=== PATIENT | female | born 1930 | race Caucasian/White ===

== ENCOUNTER 2018-04-17 12:36 | Inpatient (IN) | payer OTHER ==
[~2018-04-17] VITALS: Ht 167.6 cm; Wt 39.1 kg
[~2018-04-17 12:36] MED LIST: ADVAIR 250-501 EACH INH; FLUTICASONE PRO16 GM NASB; FOSAMAX70 M1 PO; LOVASTATIN40 M1 PO; MIRTAZAPINE7.5 M1 PO; OMEPRAZOLE40 MG PO; POTASSIUM CHLO10 ME4 PO; PREDNISONE 20MG20 MG PO; PROAIR RESPICL90 MCG INH; TENORMIN50 M1 PO; VITAMIN D31000 UNI2 PO
--- NOTE | 2018-04-17 13:29 | ED DYSPNEA/ASTHMA COMPLAINT ---
History of Present Illness General Chief Complaint: Dyspnea (COPD, CHF, Other) Stated Complaint: SIB DR SALMON LOW O2 SAT PRODUCTIVE COUGH Source: patient, family Exam Limitations: poor historian Vital Signs & Intake/Output Vital Signs & Intake/Output Vital Signs Date Time Temp Pulse Resp B/P B/P Pulse O2 O2 Flow FiO2 Mean Ox Delivery Rate 04/17 1805 98.1 104 20 140/68 93 Room Air 04/17 1536 120 86 Room Air 04/17 1439 98.4 97 18 124/88 95 Room Air 04/17 1258 95 Room Air 04/17 1240 96.0 104 20 126/89 94 Room Air Allergies Coded Allergies: tiotropium (Intermediate, HIVES 04/17/18) Reconcile Medications Albuterol Sulfate (Proair Respiclick) 90 MCG AER.POW.BA 2 PUFF INH Q4-6 PRN PRN SHORTNESS OF BREATH (Reported) Albuterol Sulfate 2.5 MG/3 ML (0.083 %) VIAL.NEB 1 Vial INH/KIRSTIN Q4P PRN SHORTNESS OF BREATH (Reported) Alendronate Sodium (Fosamax) 70 MG TABLET 1 TAB PO QW BONE (Reported) in the morning, at least 30 minutes before the first food, beverage, or medication of the day Atenolol (Tenormin) 50 MG TABLET 1 TAB PO DAILY HEART (Reported) Cholecalciferol (Vitamin D3) 1,000 UNIT TABLET 1 TAB PO DAILY VITAMIN SUPPORT (Reported) Donepezil HCl 10 MG TABLET 1 TAB PO DAILY MEMORY (Reported) Fluticasone Propionate 50 MCG/ACTUATION SPRAY.SUSP 2 SPRAY NASB DAILY ALLERGIES (Reported) Fluticasone/Salmeterol (Advair 250-50 Diskus) 250 MCG-50 MCG/DOSE BLST.W.DEV 1 PUF INH BID BREATHING PROBLEMS (Reported) Hydrochlorothiazide 25 MG TABLET 1 TAB PO DAILY WATER RETENTION (Reported) Lovastatin 40 MG TABLET 1 TAB PO DAILY CHOLESTEROL (Reported) with food Mirtazapine 7.5 MG TABLET 1 TAB PO QPM SLEEP (Reported) Potassium Chloride 10 MEQ TABLET.ER 1 TAB PO BID SUPPLEMENT (Reported) Triage Note: PT TO ED C/O SOB, COUGH, LOW O2 SAT X 5 WEEKS. C/O PRODUCTIVE YELLOW COUGH. RA SATS 94%. NO OBVIOUS RESP DISTRESS NOTED. PT'S PCP IS DR SALMON. PT HAS BEEN SEEN X 5 AT ANOTHER ED FOR SAME THING PER DAUGHTER. Triage Nurses Notes Reviewed? yes HPI: Patient presents for evaluation of low oxygen saturations and high heart rate while at home. Patient's daughter took the readings on a home pulse oximetry and then contacted Dr. Salmon's office and was told to bring her to the emergency department. The daughter states that the patient has been in the emergency department a number of times for difficulty breathing. The most recent evaluation revealed multiple "patches" in the lungs that are "concerning " according to her primary care doctor. The patient has an appointment with a stores laborer pending. This morning the patient's heart rate was in the 120s and her oxygen saturation was 90% according to her daughter. She was recently treated with a course of antibiotics and prednisone and is currently taking inhaled bronchodilators. In addition the daughter states that the patient's left eye has been closed a lot over the past week and that her tongue seems swollen. The patient has been picking at her tongue for "a while". Past History Travel History Traveled to [place] past 21 day No Medical History Any Pertinent Medical History? 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 No Review of Systems Review of Systems Constitutional: Reports: see HPI. EENTM: Reports: no symptoms. Respiratory: Reports: see HPI. Cardiovascular: Reports: no symptoms. GI: Reports: no symptoms. Genitourinary: Reports: no symptoms. Musculoskeletal: Reports: no symptoms. Skin: Reports: no symptoms. Neurological/Psychological: Reports: no symptoms. Hematologic/Endocrine: Reports: no symptoms. Immunologic/Allergic: Reports: no symptoms. All Other Systems: Reviewed and Negative Physical Exam Physical Exam Respiratory: see below Comments: Gen.: Thin, well-developed, no acute respiratory distress. Head: Normocephalic, atraumatic. Eyes: Normal inspection bilaterally Ears: Normal inspection bilaterally Nose: Normal inspection Throat/mouth : Moist mucosa Neck: Supple, full range of motion, no goiter, no JVD Heart: Regular rate and rhythm, no murmurs rubs or gallops Lungs: Clear to auscultation bilaterally with normal air entry (with cough the patient does have a mild wheeze and rhonchi) Chest: Nontender Back: Normal range of motion Abdomen: Soft, nontender, nondistended, normal bowel sounds Extremities: Normal range of motion grossly, equal radial pulses, no cyanosis clubbing or edema Neurologic: Cranial nerves grossly intact, paucity of speech Skin: warm and dry Psychiatric: Calm, cooperative, normal affect Core Measures ACS in differential dx? No CVA/TIA Diagnosis No Sepsis Present: No Sepsis Focused Exam Completed? No Progress Differential Diagnosis: bronchitis, CHF, COPD, pneumonia, lung cancer Plan of Care: Orders Procedure Date/time Status Regular Diet 04/18 B Active EKG 04/17 1914 Active URINALYSIS 04/17 132 Complete CBC WITHOUT DIFFERENTIAL 04/17 1328 Complete BASIC METABOLIC PANEL 04/17 1328 Complete Laboratory Tests 04/17/18 1528: Urine Color YEL, Urine Clarity CLEAR, Urine pH 6.0, Ur Specific [place] 1.025, Urine Protein 30 H, Urine Ketones NEG, Urine Nitrite NEG, Urine Bilirubin NEG, Urine Urobilinogen 0.2, Ur Leukocyte Esterase NEG, Ur Microscopic SEDIMENT EXAMINED, Urine WBC 1-3 H, Ur Epithelial Cells FEW, Urine Bacteria RARE H, Urine Hemoglobin NEG, Urine Glucose NEG 04/17/18 1356: Anion Gap 8, Estimated GFR 47 L, BUN/Creatinine Ratio 26.4 H, Glucose 94, Calcium 9.6, CBC w Diff NO MAN DIFF REQ, RBC 4.82, MCV 86.5, MCH 29.2, MCHC 33.7 , RDW 13.9, MPV 8.0, Gran % 74.4, Lymphocytes % 18.7 L, Monocytes % 5.8, Eosinophils % 0.9, Basophils % 0.2, Absolute Granulocytes 5.0, Absolute Lymphocytes 1.3, Absolute Monocytes 0.4, Absolute Eosinophils 0.1, Absolute Basophils 0 Diagnostic Imaging: Discussed w/RAD: Radiology Read. CXR Impression: PATIENT: IVAN DENG PRESENT AGE: 88 PATIENT ACCOUNT NO: [id number] : 31 LOCATION: [facility] ORDERING PHYSICIAN: Jean Duong MD SERVICE DATE: 04/17/18 EXAM TYPE: RAD - XRY-CHEST XRAY, TWO VIEWS EXAMINATION: XR CHEST CLINICAL INFORMATION: Infiltrate effusion cancer. COMPARISON: CT chest May 2014 chest x-ray October 2013 TECHNIQUE: 2 views of the chest were obtained. FINDINGS: No significant abnormality is noted involving the heart, lungs, mediastinum, bony thorax or soft tissues. The previously noted opacities in nodules on CT May 2014 are not conspicuous IMPRESSION: Unremarkable examination. No change compared with chest x-ray October 2013 The previously noted opacities and nodules on chest CT in 2013 are not conspicuous on today's x-ray which may be in part related to differences in imaging technique DICTATED BY: Shamir Palomo MD DATE/TIME DICTATED:04/17/181420 FLAT FOLDING MACHINE OPERATOR:BARON DATE/TIME TRANSCRIBED:04/17/181420 CONFIDENTIAL, DO NOT COPY WITHOUT APPROPRIATE AUTHORIZATION. <Electronically signed in Other Vendor System> SIGNED BY: Shamir Palomo MD 04/17/181427 Initial ED EKG: irregular sinus rhythm without acute ischemic changes Prior EKG: unchanged Comments: 04/17/2018 7:59:09 PM I have updated the patient and family repeatedly during her emergency department stay. The daughter expressed concern about the patient's overall level of functioning recently including the fact that she has been staying in bed virtually all the time. Departure Departure Disposition: STILL A PATIENT Condition: Stable Clinical Impression Primary Impression: Dyspnea on exertion Secondary Impressions: Generalized weakness, Hypoxia, Renal insufficiency Referrals: Peter Salmon MD (PCP/Family) Departure Forms: Customer Survey General Discharge Information Admission Note Spoke With: Catrachito Garcia MD Documentation of Exam: Documentation of any treatments & extenuating circumstances including Concerns Regarding Discharge (functional status, medication knowledge or non-compliance, living conditions, etc.) that warrant an admission rather than observation: Patient presents for evaluation of elevated heart rate and decreased oxygen saturations while at home. During patient's emergency department stay she had 86% oxygen saturation with ambulation along with an elevation in heart rate. The cause of this drop in oxygen saturation is unclear. Given this I feel the patient is a poor candidate for outpatient management as I feel the exertion of outpatient treatment would exacerbate her hypoxia and potentially lead to chest pain, cardiac ischemia and respiratory failure. I feel she requires hospitalization for pulse oximetry, oxygen supplementation as needed, further investigation of the patient's respiratory status, consideration of pulmonary consultation and pulmonary function studies, physical therapy consultation for patient's overall level of functioning and ability to perform ADLs and consideration of psychiatric evaluation for possible depression or other emotional/psychiatric considerations. I feel this patient will require a multiple day hospitalization. Critical Care Note Critical Care Note Critical Care Time: non-applicable
[2018-04-17 14:09] LABS: ABSOLUTE BASOPHIL COUNT 0 /CUMM (0.0-0.2); ABSOLUTE EOSINOPHIL COUNT 0.1 /CUMM (0.0-0.7); ABSOLUTE LYMPH COUNT 1.3 /CUMM (1.2-3.4); ABSOLUTE MONOCYTE COUNT 0.4 /CUMM (0.10-0.60); BASOPHIL % 0.2 % (0.0-2.0); EOSINOPHIL % 0.9 % (0-5); GRANULOCYTE % 74.4 % (42.2-75.2); HEMATOCRIT 41.7 % (37-47); MEAN CORPUSCULAR HGB 29.2 PG (27.0-31.0); MEAN CORPUSCULAR HGB CONC 33.7 G/DL (33.0-37.0); MEAN CORPUSCULAR VOLUME 86.5 FL (81.0-99.0); PLATELET COUNT 236 /CUMM (130-400); RBC DISTRIBUTION WIDTH 13.9 % (11.5-14.5); RED BLOOD CELL CT 4.82 /CUMM (4.20-5.40); WHITE BLOOD CELL COUNT 6.7 /CUMM (4.8-10.8)
[2018-04-17] MEDS ORDERED: DONEPEZIL HCL10 M1 PO (14:10)
[2018-04-17] MEDS ORDERED: ALBUTEROL2.5 MG/3 M INH/SOL (14:11)
--- NOTE | 2018-04-17 14:28 | RADIOLOGY REPORT ---
EXAMINATION: XR CHEST CLINICAL INFORMATION: Infiltrate effusion cancer. COMPARISON: CT chest May 2014 chest x-ray October 2013 TECHNIQUE: 2 views of the chest were obtained. FINDINGS: No significant abnormality is noted involving the heart, lungs, mediastinum, bony thorax or soft tissues. The previously noted opacities in nodules on CT May 2014 are not conspicuous IMPRESSION: Unremarkable examination. No change compared with chest x-ray October 2013 The previously noted opacities and nodules on chest CT in 2014 are not conspicuous on today's x-ray which may be in part related to differences in imaging technique
--- NOTE | 2018-04-17 21:01 | History & Physical ---
Lester Fermin 04/17/18 2100: General Information and HPI MD Statement: I have seen and personally examined IVAN RICO and documented this H&P. The patient is a 88 year old F who presented with a patient stated chief complaint of [Shortness of Breath x 5 weeks progressively worsening]. Source of Information: patient, family Exam Limitations: confusion History of Present Illness: Patient examined at bedside history was provided by both patient and daughter, who is primary caregiver for patient. Ms. Rico, also known as "Nubia", is an 88-year-old female with past medical history of COPD, hypertension, dementia who presents to the emergency department today with a chief complaint of shortness of breath. Nubia has had dyspnea on exertion, lethargy, cough productive of yellow sputum with scant blood, and decreased p.o. intake over the past 5 weeks. She has been to the emergency department 5 times prior to presentation, each time she was not admitted, but without resolution of symptoms. She has been taking Mucinex, which she feels has not helped her cough. She denies paroxysms of cough, does admit to some wheezing. Denies any pain. Associates the cough more with the morning, however is short of breath throughout the day. Per daughter, Nubia has been taking her nebulizer almost every 4 hours for the past 3 weeks which only mildly improves her symptoms. She has been managed by her primary care doctor Raj (phone #[phone]). She was started on prednisone for 7 days on March 13, however after not improving she was extended for another week by her primary. She was also started on doxycycline for 10 days back in the beginning of March as well per the daughter. She denies any recent inpatient admissions, however she has been in the emergency department at least 5 times over the past month. She denied any fevers, chills, night sweats, dizziness, headaches, lower extremity edema. She also denies any falls, and the daughter states she has not seen Nubia fall at home. Daughter states she is mentating at baseline. 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 Home (with daughter) Who Do You Live With? child, her daughter and her boy friend Services at Home: None Smoking Status: Former Smoker (10 packyears) ETOH Use: denies use Illicit Drug Use: denies illicit drug use Functional Ability ADLs Independent: dressing, eating, toileting. Needs Assist: bathing. Ambulation: independent IADLs Independent: shopping. 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 Exam & Diagnostic Data Last 24 Hrs of Vital Signs/I&O Vital Signs Date Time Temp Pulse Resp B/P B/P Pulse O2 O2 Flow FiO2 Mean Ox Delivery Rate 04/17 2130 97.8 102 20 159/91 94 Room Air 04/17 1805 98.1 104 20 140/68 93 Room Air 04/17 1536 120 86 Room Air 04/17 1439 98.4 97 18 124/88 95 Room Air 04/17 1258 95 Room Air 04/17 1240 96.0 104 20 126/89 94 Room Air Intake & Output 04/17 1600 0706 0800 07 0000 Intake Total 0 Output Total Balance 0 Intake, Oral 0 Patient 84 lb 0.01 oz Weight Weight Estimated Measurement Method Physical Exam General Appearance Alert, Cooperative, No Acute Distress Skin No Breakdown Skin Temp/Moisture Exam: Warm/Dry HEENT Mucous Membr. moist/pink Cardiovascular Normal S1, Normal S2, No Murmurs, irregular Lungs RODRIGUEZ Wheeze, LLL exp wheeze, RUL diminished, RML+RLL Rhonchi Abdomen Soft, No Tenderness Neurological Sensation Intact Extremities No Edema Last 24 Hrs of Labs/[place]: Laboratory Tests 04/17/18 1528: Urine Color YEL, Urine Clarity CLEAR, Urine pH 6.0, Ur Specific [place] 1.025, Urine Protein 30 H, Urine Ketones NEG, Urine Nitrite NEG, Urine Bilirubin NEG, Urine Urobilinogen 0.2, Ur Leukocyte Esterase NEG, Ur Microscopic SEDIMENT EXAMINED, Urine WBC 1-3 H, Ur Epithelial Cells FEW, Urine Bacteria RARE H, Urine Hemoglobin NEG, Urine Glucose NEG 04/17/18 1356: Anion Gap 8, Estimated GFR 47 L, BUN/Creatinine Ratio 26.4 H, Glucose 94, Calcium 9.6, CBC w Diff NO MAN DIFF REQ, RBC 4.82, MCV 86.5, MCH 29.2, MCHC 33.7 , RDW 13.9, MPV 8.0, Gran % 74.4, Lymphocytes % 18.7 L, Monocytes % 5.8, Eosinophils % 0.9, Basophils % 0.2, Absolute Granulocytes 5.0, Absolute Lymphocytes 1.3, Absolute Monocytes 0.4, Absolute Eosinophils 0.1, Absolute Basophils 0 Microbiology 04/17 2157 LOWER RESP: Respiratory Culture - ORD 04/17 2157 LOWER RESP: Gram Stain - ORD Diagnostic Data CXR Results IMPRESSION: Unremarkable examination. No change compared with chest x-ray October 2013 The previously noted opacities and nodules on chest CT in 2013 are not conspicuous on today's x-ray which may be in part related to differences in imaging technique Assessment/Plan Assessment: "Nubia" is an 88-year-old female with a past medical history of COPD, hypertension, dementia who presents with a 5 week history of shortness of breath , dyspnea on exertion, decreased p.o. intake, and cough productive of yellow sputum. Differentials include acute exacerbation of COPD, asthma exacerbation, community -acquired pneumonia, atypical pneumonia, lung malignancy (less likely). Pneumonia seems less likely, as patient was afebrile, recently treated with antibiotics, has no leukocytosis. No systemic signs. 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 #COPD exacerbationmost likely, patient has history, already been treated with antibiotics, has only been on p.o. steroids, has not had recent PFTs. -Admit to general medicine -We will start her on IV Solu-Medrol 40 mg every 12 with a plan to taper. -We will hold antibiotics, she was recently treated with doxycycline, is afebrile, has no leukocytosis. -We will start her on albuterol every 4 as needed -TRC, supplemental oxygen Sputum culture follow-up #Hypertension -We will continue her home meds, including hydrochlorothiazide. Obtain previous hospital records DVT prophylaxis Heparin + ALPS Regular Diet IV Access: Peripheral IV Full Code As Ranked By This Provider Problem List: 1. COPD exacerbation 2. Hypertension Core Measures/Misc (06/29) Acute Coronary Syndrome ACS Diagnosis: No Congestive Heart Failure Congestive Heart Failure Diagnosis No Cerebrovascular Accident CVA/TIA Diagnosis: No VTE (View Protocol) VTE Risk Factors Age>40 No Mechanical VTE Prophylaxis d/t N/A MechProphylax Ordered No VTE Pharm Prophylaxis d/t NA PharmProphylax ordered Sepsis (View protocol) Sepsis Present: No If YES complete Sepsis Event Note If YES complete Sepsis Event Note Adelnia Gandara 04/17/18 2113: Core Measures/Misc (06/29) Sepsis (View protocol) If YES complete Sepsis Event Note If YES complete Sepsis Event Note Resident Review Statement Resident Statement: examined this patient, discussed with sales management intern, agreed with sales management intern, discussed with family, reviewed EMR data (avail), discussed with nursing , discussed with case mgmt, reviewed images, amended to note Other Findings: Mr. Rico is a 88yo F w/ PMH of hypertension, hyperlipidemia, COPD/emphysema, insomnia, history of appendectomy, presented to the ER with chief complaint of hypoxia x past 5wks, and tachycardia,productive cough w/ yellowish sputum, and multiple re-admission to ER for similar complaints. According to the daughter, patient had dyspnea on exertion, lethargy, productive cough with yellow sputum scanty clots, and decreased p.o. intake 5 weeks, with frequent visits of ER 5 times to outside hospital, prior to this ER admission. She was no admitted, and was given symptomatic relief with Mucinex, and prednisone/antibiotics including azithromycin however without any significant improvement of symptoms. Patient has been using the pro-air rescue inhaler every 4 hours for the past 3 weeks. Patient was mainly being managed by the primary care without seeing any steaming cabinet tender or surface water manager, however has scheduled a recent appointment with the surface water manager outside of [facility]. Patient had a remote history of COPD being admitted in [place] back in 2014, however had no other flares in the past years. Patient denies any past cardiac history is and denied remembering any echocardiograph history. Patient appears to be low appetite since the past few days, however still maintain adequate p.o. intake At bedside, patient's daughter was coughing and endorsed that" she was given cough to people around her." During our clinical interaction, patient denied recent travel, fever/ lightheadedness/diaphoresis/night sweat/Chest Pain/Palpitation/Abdominal pain/ bowel movement or urinary abnormality, or other skin/musculoskeletal/ neurological/mood disorders, or dietary change. -Smoking: Former smoker of 1/2 PPD till 1985 -Alcohol: Denied -Rec Drugs: Denied -Allergy: Tiotropium w/ Hives, however not recalled by the Daughter On admission, Vitals: Stable afebrile, tachycardia 97-120s, stable breathing, BP 120s/80s, saturating 93% on room air, with one episode of desattubg to 86% with heart rate 120 Physical exam -Gen.: AO to person/place, however not fully oriented to time or content, cooperative, conversational, no distress, -HEENT: NCAT, PERRL, EOMI, anicteric sclera, moist mucous membranes -Neck: Supple, no JVD, trachea midline, mild accessory respiratory muscle use -Cardio: Irregular however non-tachy S1/S2 without significant murmurs/gallops/ rubs -Pulmonary: Mild rhonchi/wheezing on left side. -Abdomen: Soft, nontender, nondistended, bowel sounds intact -Extremity: Normal pulses/capillary refill, no cyanosis/clubbing/edema -CBC: Unremarkable -BMP: Unremarkable with elevated creatinine 1.1, however at baseline -CXR: Unremarkable examination. No change compared with chest x-ray October 2013 -EKG: Irregular SR w/o significant ST-T abnormalities. -Interventions in ER: Normal saline bolus 5001 Problem list/Assessment/Hospital Course: #Dyspnea/hypoxia on exertion with tachycardia #PMH of hypertension, hyperlipidemia, COPD/emphysema, insomnia, history of appendectomy - Admit to general medicine floor -Will monitor off Azithromycin for now as patient had a recent hx of 10-14 days of tx with macrolids without improvement - Would obtain ECHO, may consult cardio if needed. - Sputum culture pending DVT prophylaxis Heparin SC + ALPS Regular Diet IV Access: Peripheral IV Full Code Catrachito Garcia MD 04/18/18 0536: General Information and HPI MD Statement: I have seen and personally examined SOWMYALYSSA and documented this H&P. The patient is a 88 year old F who presented with a patient stated chief complaint of []. Allergies/Medications Allergies: Coded Allergies: tiotropium (Intermediate, HIVES 04/17/18) Home Med list Albuterol Sulfate (Proair Respiclick) 90 MCG AER.POW.BA 2 PUFF INH Q4-6 PRN PRN SHORTNESS OF BREATH (Reported) Albuterol Sulfate 2.5 MG/3 ML (0.083 %) VIAL.NEB 1 Vial INH/KIRSTIN Q4P PRN SHORTNESS OF BREATH (Reported) Alendronate Sodium (Fosamax) 70 MG TABLET 1 TAB PO QW BONE (Reported) in the morning, at least 30 minutes before the first food, beverage, or medication of the day Atenolol (Tenormin) 50 MG TABLET 1 TAB PO DAILY HEART (Reported) Cholecalciferol (Vitamin D3) 1,000 UNIT TABLET 1 TAB PO DAILY VITAMIN SUPPORT (Reported) Fluticasone Propionate 50 MCG/ACTUATION SPRAY.SUSP 2 SPRAY NASB DAILY ALLERGIES (Reported) Fluticasone/Salmeterol (Advair 250-50 Diskus) 250 MCG-50 MCG/DOSE BLST.W.DEV 1 PUF INH BID BREATHING PROBLEMS (Reported) Lovastatin 40 MG TABLET 1 TAB PO DAILY CHOLESTEROL (Reported) with food Mirtazapine 7.5 MG TABLET 1 TAB PO QPM SLEEP (Reported) Potassium Chloride 10 MEQ TABLET.ER 1 TAB PO BID SUPPLEMENT (Reported) Past Family/Social History Psychosocial History Smoking Status: Former Smoker ETOH Use: denies use Employment History Employment Retired Review of Systems Review of Systems Constitutional: Reports: see HPI. Exam & Diagnostic Data Last 24 Hrs of Vital Signs/I&O Vital Signs Date Time Temp Pulse Resp B/P B/P Pulse O2 O2 Flow FiO2 Mean Ox Delivery Rate 04/17 2301 98.1 100 20 148/88 93 04/17 2130 97.8 102 20 159/91 94 Room Air 04/17 1805 98.1 104 20 140/68 93 Room Air 04/17 1536 120 86 Room Air 04/17 1439 98.4 97 18 124/88 95 Room Air 04/17 1258 95 Room Air 04/17 1240 96.0 104 20 126/89 94 Room Air Intake & Output 04/18 0800 07/ 0000 04/17 1600 Intake Total 0 Output Total Balance 0 Intake, Oral 0 Patient 86 lb 3.99 oz 84 lb 0.01 oz Weight Weight Bed scale Estimated Measurement Method Physical Exam General Appearance Alert, Cooperative, No Acute Distress HEENT Atraumatic, PERRLA, EOMI Cardiovascular Regular Rate, Normal S1, Normal S2 Lungs RODRIGUEZ Wheeze, LLL exp wheeze, RUL diminished, RML+RLL Rhonchi Abdomen Normal Bowel Sounds, Soft, No Tenderness Extremities No Edema Last 24 Hrs of Labs/[place]: Laboratory Tests 04/17/18 1528: Urine Color YEL, Urine Clarity CLEAR, Urine pH 6.0, Ur Specific [place] 1.025, Urine Protein 30 H, Urine Ketones NEG, Urine Nitrite NEG, Urine Bilirubin NEG, Urine Urobilinogen 0.2, Ur Leukocyte Esterase NEG, Ur Microscopic SEDIMENT EXAMINED, Urine WBC 1-3 H, Ur Epithelial Cells FEW, Urine Bacteria RARE H, Urine Hemoglobin NEG, Urine Glucose NEG 04/17/18 1356: Anion Gap 8, Estimated GFR 47 L, BUN/Creatinine Ratio 26.4 H, Glucose 94, Calcium 9.6, CBC w Diff NO MAN DIFF REQ, RBC 4.82, MCV 86.5, MCH 29.2, MCHC 33.7 , RDW 13.9, MPV 8.0, Gran % 74.4, Lymphocytes % 18.7 L, Monocytes % 5.8, Eosinophils % 0.9, Basophils % 0.2, Absolute Granulocytes 5.0, Absolute Lymphocytes 1.3, Absolute Monocytes 0.4, Absolute Eosinophils 0.1, Absolute Basophils 0 Microbiology 04/17 2157 LOWER RESP: Respiratory Culture - COLB 04/17 2157 LOWER RESP: Gram Stain - COLB Core Measures/Misc (06/29) Sepsis (View protocol) If YES complete Sepsis Event Note If YES complete Sepsis Event Note Attending MD Review Statement Attending Statement Attending MD Statement: examined this patient, discuss w/resident/PA/CORD MAKER, agreed w/resident/PA/CORD MAKER, amended to note Attending Assessment/Plan: This patient is an 88-year-old female with past medical history of COPD, hypertension, dementia who presents to the emergency department today with a chief complaint of shortness of breath. The patient has had dyspnea on exertion , lethargy, cough productive of yellow sputum with scant blood, and decreased p.o. intake over the past 5 weeks. She has been to the emergency department 5 times prior to presentation, each time she was not admitted, but without resolution of symptoms. She has been taking Mucinex, which she feels has not helped her cough. She denies paroxysms of cough, does admit to some wheezing. Denies any pain. Associates the cough more with the morning, however is short of breath throughout the day. The patient has been taking her nebulizer almost every 4 hours for the past 3 weeks which only mildly improves her symptoms. She was started on prednisone for 7 days on March 13, however after not improving she was extended for another week by her primary. She was also started on doxycycline for 10 days back in the beginning of March as well per the daughter. Daughter states she is mentating at baseline. Treating for Acute ECOPD.
[2018-04-17 23:01] VITALS: BP 148/88
--- NOTE | 2018-04-18 05:52 | PN- Housestaff ---
See Addendum Subjective Follow-up For: AECOPD Subjective: Pt seen and examined at bedside. Was admitted last night for AECOPD. Daughter not at bedside. Pt is demented at baseline. Pt Alert to place, not person or time. Pt continually repeats "I dont know what it is but something is wrong". Unable to localize pain or specific complaints. Review of Systems Constitutional: Reports: see HPI. Objective Last 24 Hrs of Vital Signs/I&O Vital Signs Date Time Temp Pulse Resp B/P B/P Pulse O2 O2 Flow FiO2 Mean Ox Delivery Rate 04/18 0636 97.6 92 20 140/98 94 Room Air 04/17 2301 98.1 100 20 148/88 93 04/17 2130 97.8 102 20 159/91 94 Room Air 04/17 1805 98.1 104 20 140/68 93 Room Air 04/17 1536 120 86 Room Air 04/17 1439 98.4 97 18 124/88 95 Room Air 04/17 1258 95 Room Air 04/17 1240 96.0 104 20 126/89 94 Room Air Intake & Output 04/18 0800 04/18 0000 04/17 1600 Intake Total 100 0 Output Total 250 Balance -150 0 Intake, Oral 100 0 Output, Urine 250 Patient 85 lb 1 oz 86 lb 4 oz 84 lb 0.01 oz Weight Weight Bed scale Estimated Measurement Method Physical Exam General Appearance: Alert, Cooperative, No Acute Distress Skin: No Breakdown Skin Temp/Moisture Exam: Warm/Dry HEENT: Mucous Membr. moist/pink Cardiovascular: Normal S1, Normal S2 Lungs: rhonchi, RLL, LLL Abdomen: Soft, No Tenderness Neurological: Sensation Intact Extremities: No Edema Current Medications: Current Medications Sig/Nickolas Start time Last Medication Dose Route Stop Time Status Admin Acetaminophen 650 MG Q6P PRN 04/17 2045 AC PO Albuterol Sulfate 3 ML Q4P PRN 04/17 2200 AC INH Atenolol 50 MG DAILY 04/18 09 AC PO Atorvastatin Calcium 10 MG 1700 04/18 1700 AC PO Cholecalciferol 1,000 IU DAILY 04/18 900 AC PO Heparin Sodium 5,000 UNIT Q8 04/18 0600 AC 04/18 (Porcine) SC 0605 Methylprednisolone 40 MG Q12 04/17 2230 AC 04/17 IV 2315 Mirtazapine 7.5 MG QPM 04/18 2100 AC PO Potassium Chloride 10 MEQ BID 04/18 0900 AC PO Sodium Chloride 500 ML BOLUS ONE 04/17 1330 DC 04/17 IV 04/17 1429 1402 Last 24 Hrs of Lab/[place] Results Last 24 Hrs of Labs/[place]: Laboratory Tests 04/17/18 1528: Urine Color YEL, Urine Clarity CLEAR, Urine pH 6.0, Ur Specific [employer] 1.025, Urine Protein 30 H, Urine Ketones NEG, Urine Nitrite NEG, Urine Bilirubin NEG, Urine Urobilinogen 0.2, Ur Leukocyte Esterase NEG, Ur Microscopic SEDIMENT EXAMINED, Urine WBC 1-3 H, Ur Epithelial Cells FEW, Urine Bacteria RARE H, Urine Hemoglobin NEG, Urine Glucose NEG 04/17/18 1356: Anion Gap 8, Estimated GFR 47 L, BUN/Creatinine Ratio 26.4 H, Glucose 94, Calcium 9.6, CBC w Diff NO MAN DIFF REQ, RBC 4.82, MCV 86.5, MCH 29.2, MCHC 33.7 , RDW 13.9, MPV 8.0, Gran % 74.4, Lymphocytes % 18.7 L, Monocytes % 5.8, Eosinophils % 0.9, Basophils % 0.2, Absolute Granulocytes 5.0, Absolute Lymphocytes 1.3, Absolute Monocytes 0.4, Absolute Eosinophils 0.1, Absolute Basophils 0 Microbiology 04/17 2157 LOWER RESP: Respiratory Culture - COLB 04/17 2157 LOWER RESP: Gram Stain - COLB Assessment/Plan Assessment: "Nubia" is an 88-year-old female with a past medical history of COPD, hypertension, dementia who presents with a 5 week history of shortness of breath , dyspnea on exertion, decreased p.o. intake, and cough productive of yellow sputum. Differentials include acute exacerbation of COPD, asthma exacerbation, community -acquired pneumonia, atypical pneumonia, lung malignancy (less likely). Pneumonia seems less likely, as patient was afebrile, recently treated with antibiotics, has no leukocytosis. No systemic signs. 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 #COPD exacerbationmost likely, patient has history, already been treated with antibiotics, has only been on p.o. steroids, has not had recent PFTs. -Admit to general medicine -We will start her on IV Solu-Medrol 40 mg every 12 with a plan to taper. -We will hold antibiotics, she was recently treated with doxycycline, is afebrile, has no leukocytosis. -We will start her on albuterol every 4 as needed -TRC, supplemental oxygen Sputum culture follow-up #Hypertension -We will continue her home meds, including hydrochlorothiazide. Obtain previous hospital records DVT prophylaxis Heparin + ALPS Regular Diet IV Access: Peripheral IV Full Code Problem List: 1. COPD exacerbation Pain Ratin Pain Location: na Pain Goal: Pain 4 or less Pain Plan: PRN Tomorrow's Labs & Rationales: na
[2018-04-18 06:36] VITALS: BP 140/98
[2018-04-18 08:37] LABS: ABSOLUTE BASOPHIL COUNT 0 /CUMM (0.0-0.2); ABSOLUTE EOSINOPHIL COUNT 0 /CUMM (0.0-0.7); ABSOLUTE GRANULOCYTE CT 4.1 /CUMM (1.4-6.5); ABSOLUTE LYMPH COUNT 0.6 /CUMM (1.2-3.4); ABSOLUTE MONOCYTE COUNT 0 /CUMM (0.10-0.60); BASOPHIL % 0.2 % (0.0-2.0); EOSINOPHIL % 0.1 % (0-5); HEMATOCRIT 38.9 % (37-47); MEAN CORPUSCULAR HGB 28.8 PG (27.0-31.0); MEAN CORPUSCULAR HGB CONC 33.2 G/DL (33.0-37.0); MEAN CORPUSCULAR VOLUME 86.5 FL (81.0-99.0); MEAN PLATELET VOLUME 8.2 FL (7.4-10.4); PLATELET COUNT 202 /CUMM (130-400); RBC DISTRIBUTION WIDTH 14.2 % (11.5-14.5); WHITE BLOOD CELL COUNT 4.7 /CUMM (4.8-10.8)
[2018-04-18 09:18] LABS: GRANULOCYTE % 87.2 % (42.2-75.2)
[2018-04-18 15:01] VITALS: BP 130/78
[2018-04-18 22:07] VITALS: BP 124/80
[2018-04-19 06:32] VITALS: BP 118/60
--- NOTE | 2018-04-19 07:06 | ECHOCARDIOGRAM REPORT ---
IVAN DENG Age: 88 : 1930 Gender: F Exam Date: 04/18/2018 07:46 Exam Location: [address] Ht (in): 67 Wt (lb): 84 BSA: 1.32 BP: 140 / 98 Ordering Physician: Adelina Gandara MD Referring Physician: Adelina Gandara MD Technologist: Aundrea Momin [facility] Room Number: 230-2 Indications: Rhythm: Sinus Technical Quality: good FINDINGS Left Ventricle Normal left ventricular size, wall thickness and systolic function with no obvious regional wall motion abnormalities. Diastolic filling pattern is consistent with impaired LV relaxation. The ejection fraction is visually estimated at 60%. Right Ventricle The right ventricle is normal in size and function. Right Atrium The right atrium is normal in size. Left Atrium The left atrium is normal in size. The interatrial septum is intact. Mitral Valve The mitral valve demonstrates mild prolapse. There is trace mitral regurgitation. Aortic Valve Structurally normal aortic valve without significant sclerosis or stenosis. There is no aortic regurgitation. Tricuspid Valve The tricuspid valve is normal in structure and function. There is mild to moderate tricuspid regurgitation. Pulmonary artery systolic pressure is normal. Pulmonic Valve Structurally normal pulmonic valve. There is no pulmonic regurgitation. Pericardium Normal pericardium without effusion. No pleural effusion. Great Vessels Normal aortic root dimension. The aortic arch and great vessels are well seen and are normal. CONCLUSIONS 1. Normal EF of 60% with impaired LV relaxation. 2. Mild mitral valve prolapse. Trace mitral regurgitation. 3. Mild to moderate tricuspid regurgitation. Misbah Bess M.D. (Electronically Signed) Final Date: 19 April 2018 07:06 MEASUREMENTS (Male / Female) Normal Values 2D ECHO LV Diastolic Diameter PLAX 2.8 cm 4.2 - 5.9 / 3.9 - 5.3 cm LV Systolic Diameter PLAX 1.6 cm 2.1 - 4.0 cm LV Fractional Shortening PLAX 42.9 % 25 - 46 % LV Ejection Fraction 2D Teich 75.7 % IVS Diastolic Thickness 1.1 cm LVPW Diastolic Thickness 0.8 cm LV Relative Wall Thickness 0.7 LVOT Diameter 1.5 cm Aortic Root Diameter 2.6 cm LA Systolic Diameter LX 1.8 cm 3.0 - 4.0 / 2.7 - 3.8 cm LA Volume 28.0 cm 18 - 58 / 22 - 52 cm DOPPLER AV Peak Velocity 167.0 cm/s AV Peak Gradient 11.2 mmHg LVOT Peak Velocity 88.8 cm/s LVOT Peak Gradient 3.2 mmHg AV Area Cont Eq pk 0.9 cm Mitral E Point Velocity 77.5 cm/s Mitral A Point Velocity 122.0 cm/s Mitral E to A Ratio 0.6 MV Deceleration Time 208.0 ms TR Peak Velocity 263.0 cm/s TR Peak Gradient 27.7 mmHg LV E' Lateral Velocity 6.6 cm/s Mitral E to LV E' Lateral Ratio 11.7 LV E' Septal Velocity 3.6 cm/s Mitral E to LV E' Septal Ratio 21.5
--- NOTE | 2018-04-19 08:27 | PN- Housestaff ---
Tato Escalante 04/19/18 0826: Subjective Follow-up For: Shortness of breath Subjective: Patient seen and examined at bedside. Was admitted Friday night for acute exacerbation of COPD. Patient says daughter is coming today, but daughter not at bedside at time of exam. Patient is demented at baseline. Patient is alert to place and time, but not person. Patient mentioned strange things about "3 different tubes" that were likely related to her dementia. Unable to localize pain or specific complaints. Review of Systems Constitutional: Reports: no symptoms. Objective Last 24 Hrs of Vital Signs/I&O Vital Signs Date Time Temp Pulse Resp B/P B/P Pulse O2 O2 Flow FiO2 Mean Ox Delivery Rate 04/19 0907 77 108/70 04/19 0824 94 Room Air 04/19 0800 92 Room Air 04/19 0632 97.8 102 16 118/60 92 Room Air 04/19 0000 94 Room Air 04/18 2207 97.7 101 20 124/80 94 Room Air 04/18 2005 93 Room Air 04/18 1607 93 Room Air 04/18 1600 95 Room Air 04/18 1501 98.3 87 20 130/78 95 Room Air Intake & Output 04/19 1600 /08 0800 07/08 0000 Intake Total 200 350 Output Total 250 Balance -250 200 350 Intake, Oral 200 350 Number 1 Bowel Movements Output, Urine 250 Patient 86 lb 2 oz Weight Physical Exam General Appearance: Alert, Cooperative, No Acute Distress, not oriented to person Skin: No Rashes, No Breakdown, hematomas on hands Skin Temp/Moisture Exam: Warm/Dry HEENT: Atraumatic, PERRLA, EOMI Neck: Supple, No thryomegaly Cardiovascular: Regular Rate, Normal S1, Normal S2, No Murmurs Lungs: end expiratory wheezing diffusely, bilaterally Abdomen: No Tenderness Neurological: Normal Speech (nonsensical at times), Strength at 5/5 X4 Ext, Sensation Intact Assessment/Plan Assessment: "Nubia" is an 88-year-old female with a past medical history of COPD, hypertension, dementia who presents with a 5 week history of shortness of breath , dyspnea on exertion, decreased p.o. intake, and cough productive of yellow sputum. Differentials include acute exacerbation of COPD, asthma exacerbation, community -acquired pneumonia, atypical pneumonia, lung malignancy (less likely). Pneumonia seems less likely, as patient was afebrile, recently treated with antibiotics, has no leukocytosis. No systemic signs. 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 Problem list: Plan: , has no leukocytosis DVT prophylaxis: Heparin, ALPS Patient is full code Problem List: 1. COPD exacerbation Pain Ratin Pain Location: NA Pain Goal: Remain pain free Pain Plan: As needed Tomorrow's Labs & Rationales: None Silvino HERNÁNDEZ,Amir 04/19/18 1141: Attending MD Review Statement Attending Statement Attending MD Statement: examined this patient, discuss w/resident/PA/LEAD IOS DEVELOPER, agreed w/resident/PA/LEAD IOS DEVELOPER, reviewed EMR data (avail), discussed with nursing Attending Assessment/Plan: No overnight issues --cont to taper steroids --agree with Pulm f/u as outpt --rest of the plan as per resident's note
[2018-04-19 14:01] VITALS: BP 110/65
[2018-04-19 22:07] VITALS: BP 124/76
[2018-04-20 06:36] VITALS: BP 118/70
--- NOTE | 2018-04-20 07:35 | PN- Housestaff ---
Lester Fermin 04/20/18 0735: Subjective Follow-up For: Acute exacerbation COPD Subjective: Patient seen and examined at bedside today. Over the weekend, patient was confused. She was placed with a one-to-one monitor, did not have any episodes of agitation or aggression. Patient states that she feels better than before, is oriented to person, place, not time. Patient is speaking in longer sentences without taking a breath. Per daughter, this is her baseline. Patient denies any fever/chills/night sweats/chest pain/abdominal pain/difficulty urinating/ lower extremity edema. Review of Systems Constitutional: Reports: see HPI. Objective Last 24 Hrs of Vital Signs/I&O Vital Signs Date Time Temp Pulse Resp B/P B/P Pulse O2 O2 Flow FiO2 Mean Ox Delivery Rate 04/20 1200 94 Room Air Room Air 04/20 0916 98.3 79 118/70 04/20 0905 94 Room Air 04/20 0800 95 Room Air Room Air 04/20 0636 98.3 79 16 118/70 92 Room Air 04/20 0000 Room Air 04/19 2207 98.7 86 18 124/76 94 Room Air / 2110 94 Room Air / 1401 98.3 93 20 110/65 93 Room Air Intake & Output 04/20 1600 / 0800 07/ 0000 Intake Total 400 400 Output Total Balance 400 400 Intake, Oral 400 400 Physical Exam General Appearance: Alert, Cooperative, No Acute Distress Skin Temp/Moisture Exam: Warm/Dry Cardiovascular: Regular Rate, Normal S1, Normal S2, No Murmurs Lungs: diminished RLL, improved since admission Abdomen: Soft, No Tenderness Extremities: No Edema Assessment/Plan Assessment: "Nubia" is an 88-year-old female with a past medical history of COPD, hypertension, dementia who presents with a 5 week history of shortness of breath , dyspnea on exertion, decreased p.o. intake, and cough productive of yellow sputum. She is admitted for an acute exacerbation of COPD. #COPD exacerbationresolving -Patient steroids have been switched to p.o. prednisone, she is on 40 mg with a plan to taper outpatient. -Holding antibiotics -Continue albuterol as needed -TRC, supplemental oxygen #Hypertensioncontrolled -We will continue her home meds, including hydrochlorothiazide. #Malnourishment -Patient BMI 13.9. Nutrition was consulted. Patient to be discharged home with home healthcare services today. DVT prophylaxis Heparin + ALPS Regular Diet IV Access: Peripheral IV Full Code Problem List: 1. COPD exacerbation 2. Failure to thrive Pain Ratin Pain Location: NA Pain Goal: Remain pain free Pain Plan: Tylenol as needed Tomorrow's Labs & Rationales: None Discharge Plan Discharge Disposition: home Stable for Discharge? Yes Anticipated Discharge (Day): today Uche Fagan 04/20/18 1305: Attending MD Review Statement Attending Statement Attending MD Statement: examined this patient, discuss w/resident/PA/ROLLWAY WORKER, agreed w/resident/PA/ROLLWAY WORKER, discussed with family, reviewed EMR data (avail), discussed with nursing, discussed with case mgmt, reviewed images, amended to note Attending Assessment/Plan: Patient seen/examined bedside. Patient clinically improved since admission. She is on room air this morning without use of accessory muscles. Check walking pulse oximetry. Patient needs outpatient pulmoanry follow up for spicluated lung mass for which she has scheduled appointment on . Patient is cleared by PT to home. She has low BMI 13.9 with recent weight loss and might benefit from nutrition consult if family agrees, She is medically stable for discharge. FOLLOW UP PCP in 1 week Pulmonary as scheduled.
[2018-04-20 09:16] VITALS: BP 118/70
--- NOTE | 2018-04-20 11:58 | Patient Discharge Instructions ---
Discharge Instructions General Discharge Information You were seen/treated for: Acute exacerbation of COPD You had these procedures: ECHOcardiogram Watch for these problems: SOB, FEVERS, WHEEZING, DYSPNEA Special Instructions: - Please follow up with your primary care physician within 1-2 weeks of discharge. Inform your primary care physician of this admission to [facility]. - Continue your current medications per discharge instructions. - Please watch for these problems: Fever, Chills, Nausea, Vomiting, Shortness of Breath, Productive Cough, Chest Pain/Discomfort, Abdominal Pain, Active Bleeding or Bloody urine/stool. Diet Continue normal diet: Yes Recommended Diet: Heart Healthy Activity Full Activity/No Limits: Yes Acute Coronary Syndrome Inclusion Criteria At DC or during hospital stay patient has or had the following: ACS DIAGNOSIS No Discharge Core Measures Meds if any: Prescribed or Continued at Discharge Meds if any: NOT Prescribed or Continued at Discharge Congestive Heart Failure Inclusion Criteria At DC or during hospital stay patient has or had the following: CHF DIAGNOSIS No Discharge Core Measures Meds if any: Prescribed or Continued at Discharge Meds if any: NOT Prescribed or Continued at Discharge Cerebrovascular accident Inclusion Criteria At DC or during hospital stay patient has or had the following: CVA/TIA Diagnosis No Discharge Core Measures Meds if any: Prescribed or Continued at Discharge Meds if any: NOT Prescribed or Continued at Discharge Venous thromboembolism Inclusion Criteria VTE Diagnosis No VTE Type NONE VTE Confirmed by (Test) NONE Discharge Core Measures - Per Current guidelines, there needs to be overlap - treatment for the first 5 days of Warfarin therapy. - If discharged on Warfarin prior to 5 days of - overlap therapy, the patient will need to be - assessed for post discharge needs including - *Post discharge parental anticoagulation - *Warfarin and/or parental anticoagulation education - *Follow up date to check INR post discharge At least 5 days overlap therapy as Inpatient No Meds if any: Prescribed or Continued at Discharge Note: Overlap Therapy is Warfarin and Anticoagulant Meds if any: NOT Prescribed or Continued at Discharge
[2018-04-20] MEDS ORDERED: DONEPEZIL HCL10 M1 PO ×2 (11:59→13:53)
[2018-04-20] MEDS ORDERED: HYDROCHLOROTHIA25 M1 PO (12:59)
[2018-04-20] MEDS ORDERED: PREDNISONE10 M2 PO ×2 (13:40→13:53)
--- NOTE | 2018-04-20 15:38 | Discharge Summary ---
See Addendum Visit Information Visit Dates Admission Date: 04/17/18 Discharge Date: 04/20/18 Hospital Course Course Attending Physician: Uche Fagan MD Primary Care Physician: Peter Anthony MD Hospital Course: Ms. Rico, also known as "Nubia", is an 88-year-old female with past medical history of COPD, hypertension, dementia who presented to the emergency department today with a chief complaint of shortness of breath. Nubia has had dyspnea on exertion, lethargy, cough productive of yellow sputum with scant blood, and decreased p.o. intake over the past 5 weeks. She has been to the emergency department 5 times prior to presentation, each time she was not admitted, but without resolution of symptoms. She has been taking Mucinex, which she feels has not helped her cough. She denies paroxysms of cough, does admit to some wheezing. Denies any pain. Associates the cough more with the morning, however is short of breath throughout the day. Per daughter, Nubia has been taking her nebulizer almost every 4 hours for the past 3 weeks which only mildly improves her symptoms. She has been managed by her primary care doctor Raj (phone #[phone]). She was started on prednisone for 7 days on March 13, however after not improving she was extended for another week by her primary. She was also started on doxycycline for 10 days back in the beginning of March as well per the daughter. She denies any recent inpatient admissions, however she has been in the emergency department at least 5 times over the past month. She denied any fevers, chills, night sweats, dizziness, headaches, lower extremity edema. She also denies any falls, and the daughter states she has not seen Nubia fall at home. Daughter states she is mentating at baseline. ROS: DENIES chest pain, palpitations, abdominal pain, vomiting, diarrhea, urinary symptoms Vitals in ED: T-max 98.4, pulse 97-120, respiratory rate 18, blood pressure 124- 159/68-91, pulse ox 94% on room air, however desatted to 86% when ambulatory No leukocytosis, BUN 29 creatinine 1.1 Chest x-ray: Unremarkable EKG: Irregular, without ST-T segment abnormality ED interventions: Normal saline bolus 5001 She was admitted to general medicine, started on supplemental O2, TRC/nebulizer, given IV Solu-Medrol 40 mg every 12, and echo was ordered. Patient was switched to p.o. steroids on day 2, echo came back unremarkable. Patient had episodes of confusion, one-to-one monitor was ordered. Patient tolerated steroid course well, was tapered down to 40 mg, and discharged with a taper outpatient. Patient remained afebrile, had no major episodes of desaturations, and nutrition was consulted due to her low BMI, who recommended Ensure once a day outpatient. Patient and daughter were informed to follow-up with her weatherization and housing inspector on , which was previously scheduled prior to admission. Patient was discharged to her daughter's house, with home health care. Allergies: Coded Allergies: tiotropium (Intermediate, HIVES 04/17/18) Disposition Summary Disposition Principal Diagnosis: Acute exacerbation of COPD Additional Diagnosis: Hypertension Discharge Disposition: home health services Discharge Instructions General Discharge Information Code Status: Full Code Patient's Diet: As tolerated, please continue with Ensure Patient's Activity: As tolerated Follow-Up Instructions/Appts: - Please follow up with your weatherization and housing inspector regarding the spiculated lung mass found on chest CT. - Please follow up with your primary care physician within 1-2 weeks of discharge. Inform your primary care physician of this admission to [facility]. - Continue your current medications per discharge instructions. - Please watch for these problems: Fever, Chills, Nausea, Vomiting, Shortness of Breath, Productive Cough, Chest Pain/Discomfort, Abdominal Pain, Active Bleeding or Bloody urine/stool. Medications at Discharge Discharge Medications: Continue taking these medications: Mirtazapine (Mirtazapine) 7.5 MG TABLET 1 Tablet ORAL Every night Comments: NOT GIVEN THIS ADMISSION Fluticasone Propionate (Fluticasone Propionate) 50 MCG/ACTUATION SPRAY.SUSP 2 [place] Both sides of nose DAILY Comments: NOT GIVEN THIS ADMISSION Fluticasone/Salmeterol (Advair 250-50 Diskus) 250 MCG-50 MCG/DOSE BLST.W.DEV 1 Puff Inhale through mouth TWICE DAILY Comments: NOT GIVEN IN HOSPITAL Albuterol Sulfate (Proair Respiclick) 90 MCG AER.POW.BA 2 PUFF Inhale through mouth EVERY 4-6 HOURS NEEDED as needed for SHORTNESS OF BREATH Comments: NOT GIVEN THIS ADMISSION Atenolol (Tenormin) 50 MG TABLET 1 Tablet ORAL DAILY Comments: Last Taken:04/20/18 Time:9:15A.M Alendronate Sodium (Fosamax) 70 MG TABLET 1 Tablet ORAL Once a Week Instructions: in the morning, at least 30 minutes before the first food, beverage, or medication of the day Comments: NOT GIVEN THIS ADMISSION Lovastatin (Lovastatin) 40 MG TABLET 1 Tablet ORAL DAILY Instructions: with food Comments: NOT GIVEN LIPITOR GIVEN 04/19/18 AT 6:05P.M Hydrochlorothiazide (Hydrochlorothiazide) 25 MG TABLET 1 Tablet ORAL DAILY Comments: NOT GIVEN THIS ADMISSION Potassium Chloride (Potassium Chloride) 10 MEQ TABLET.ER 1 Tablet ORAL TWICE DAILY Comments: Last Taken:04/20/18 Time:9:15A.M Cholecalciferol (Vitamin D3) 1,000 UNIT TABLET 1 Tablet ORAL DAILY Comments: Last Taken:04/20/18 Time9/15A.M Albuterol Sulfate (Albuterol Sulfate) 2.5 MG/3 ML (0.083 %) VIAL.NEB 1 Vial Inhale Solution EVERY 4 HOURS NEEDED as needed for SHORTNESS OF BREATH Qty = 1080 Comments: Last Taken:04/20/18 Time:12:08P.M Start taking the following new medications: Prednisone (Prednisone) 10 MG TABLET 1 Tablet ORAL DAILY Qty = 16 No Refills Instructions: . Comments: Last Taken:04/20/18 Time: 9:16A.M 7: Take 4 tablets, once daily 04/22-12: Take 3 tablets, once daily 04/24-14: Take 2 tablets, once daily 04/26-: Take 1 tablet, once daily 04/28: STOP The following medications have been changed: Old: Donepezil HCl (Donepezil HCl) 10 MG TABLET 1 Tablet ORAL DAILY Qty = 90 New: Donepezil HCl (Donepezil HCl) 10 MG TABLET 1 Tablet ORAL DAILY Qty = 30 Instructions: . Comments: NOT GIVEN THIS ADMISSION Copies To: Raj HERNÁNDEZ,Peter Robles
== END 2018-04-20 14:48 | disposition home health service (06) | DRG 191 ==
LOC: ERH 12:36 → ERHI 20:01 → 2NA 20:01 → ENRESERV 20:41 → ENTRNSPT 22:09 → 2NA 22:20 → CMPTRNSPT 22:28 → 2NA 04-20 07:42 → DELTRNSPT 04-20 14:54
PROVIDERS: Emergency Medicine
DX: J44.1 Chronic obstructive pulmonary disease with (acute) exacerbation (principal); E46 Unspecified protein-calorie malnutrition; Z68.1 Body mass index [BMI] 19.9 or less, adult; I10 Essential (primary) hypertension; E78.5 Hyperlipidemia, unspecified; R09.02 Hypoxemia; F03.90 Unspecified dementia, unspecified severity, without behavioral disturbance, psychotic disturbance, mood disturbance, and anxiety; G47.00 Insomnia, unspecified; Z79.51 Long term (current) use of inhaled steroids
CPT/HCPCS: 2NASP; 36592; 71046; 81001; 82436; 87070; 93005; 93010; 93306; 97116-GO; 97162-GP; J1644; J2920; J7040